=== PATIENT | female | born 1975 | race African-American/Black ===

== ENCOUNTER 2016-07-27 15:21 | Emergency (ER) | payer BC ==
[~2016-07-27] VITALS: Ht 154.9 cm; Wt 72.0 kg
[2016-07-27] MEDS ORDERED: IBUPROFEN 600MG TABLET PO ONE (16:00)
[2016-07-27] MEDS ORDERED: SUMATRIPTAN SUCCINATE 25MG TABLET PO ONE (16:00)
[2016-07-27 17:47] LABS: CLARITY URINE CLEAR (CLEAR); COLOR URINE YELLOW (YELLOW); GLUCOSE URINE NEGATIVE (NEGATIVE); KETONES URINE NEGATIVE (NEGATIVE); LEUKOCYTE ESTERASE URINE NEGATIVE (NEGATIVE); NITRITE URINE NEGATIVE (NEGATIVE); OCCULT BLOOD URINE NEGATIVE (NEGATIVE); PROTEIN URINE NEGATIVE (NEGATIVE); SPECIFIC GRAVITY URINE 1.012 (1.005-1.030); UROBILINOGEN URINE 0.2 E.U./dL (0.2-1.0)
[2016-07-27 18:53] VITALS: BP 149/91
== END 2016-07-27 19:02 | disposition home or self-care (01) ==
LOC: ER 16:31
DX: G43.909 Migraine, unspecified, not intractable, without status migrainosus (principal); I10 Essential (primary) hypertension
CPT/HCPCS: 81003; 81025; 99283